=== PATIENT | female | born 1955 ===

== ENCOUNTER 2016-07-23 20:26 | Emergency (ER) | payer SELFPAY ==
[2016-07-23 21:41] VITALS: RESP 18
--- NOTE | 2016-07-23 21:47 | ED PDOC ---
Arrival/HPI - General Chief Complaint: Headache Time Seen by Provider: 07/23/16 20:31 Historian: Patient - History of Present Illness Narrative History of Present Illness (Text): 07/23/16 21:46 Kayla Velazquez is a 60 year old female, whose past medical history includes hypertension, who presents to the Emergency department complaining of headache. Patient states she has been experiencing a throbbing headache for the past 5 days with associated dizziness. Patient states she has experienced similar headaches in the past. Patient denies any vision changes, focal neurological deficits, speech changes, fever, chills, chest pain, shortness of breath, nausea , vomiting, diarrhea, urinary symptoms, back pain, neck pain, or any other complaints. Time/Duration: < week (5 days) Symptom Onset: Gradual Symptom Course: Unchanged Activities at Onset: Rest, Light Context: Home Past Medical History - Provider Review Nursing Documentation Reviewed: Yes - Psychiatric Hx Substance Use: No Family/Social History - Physician Review Nursing Documentation Reviewed: Yes Family/Social History: No Known Family HX Smoking Status: no Hx Alcohol Use: No Hx Substance Use: No Allergies/Home Meds Allergies/Adverse Reactions: Allergies No Known Allergies Allergy (Verified 07/23/16 21:36) Review of Systems - Physician Review All systems were reviewed & negative as marked: Yes - Review of Systems Constitutional: Normal. absent: Fevers Eyes: Normal ENT: Normal Respiratory: Normal. absent: SOB, Cough Cardiovascular: Normal. absent: Chest Pain Gastrointestinal: Normal. absent: Abdominal Pain, Diarrhea, Nausea, Vomiting Genitourinary Female: Normal. absent: Dysuria, Frequency, Hematuria, Urine Output Changes Musculoskeletal: Normal. absent: Back Pain, Neck Pain Skin: Normal. absent: Rash Neurological: Headache, Dizziness Endocrine: Normal Hemo/Lymphatic: Normal Psychiatric: Normal Physical Exam Vital Signs Reviewed: Yes Vital Signs Temp Pulse Resp BP Pulse Ox 07/23/16 21:37 97.7 F 93 H 18 162/90 H 97 Temperature: Afebrile Blood Pressure: Hypertensive Pulse: Regular Respiratory Rate: Normal Appearance: Positive for: Well-Appearing, Non-Toxic, Comfortable Pain Distress: None Mental Status: Positive for: Alert and Oriented X 3 - Systems Exam Head: Present: Atraumatic, Normocephalic Pupils: Present: PERRL Extroacular Muscles: Present: EOMI Conjunctiva: Present: Normal Mouth: Present: Moist Mucous Membranes Neck: Present: Normal Range of Motion. No: Meningeal Signs, MIDLINE TENDERNESS , Paraspinal Tenderness Respiratory/Chest: Present: Clear to Auscultation, Good Air Exchange. No: Respiratory Distress, Accessory Muscle Use Cardiovascular: Present: Regular Rate and Rhythm, Normal S1, S2. No: Murmurs Abdomen: Present: Normal Bowel Sounds. No: Tenderness, Distention, Peritoneal Signs Back: Present: Normal Inspection Upper Extremity: Present: Normal Inspection, Normal ROM, NORMAL PULSES, Neurovascularly Intact, Capillary Refill < 2s. No: Cyanosis, Edema, Tenderness , Swelling, Erythema, Temperature Abnormalties, Deformity Lower Extremity: Present: Normal Inspection. No: Edema Neurological: Present: GCS=15, CN II-XII Intact, Speech Normal Skin: Present: Warm, Dry, Normal Color. No: Rashes Psychiatric: Present: Alert, Oriented x 3, Normal Insight, Normal Concentration Medical Decision Making ED Course and Treatment: 07/23/16 21:46 Impression: 60 year old female complaining of headache and dizziness for 5 days. Plan: -- CT Head w/o contrast -- Reglan -- IV fluids -- Reassess and disposition Progress Notes: 07/23/16 23:53 Reviewed radiology, CT Head shows: Disease of the paranasal sinuses as above, noting in particular suggestion of possible acute sinusitis of the ethmoids. Favor that findings in the other paranasal sinuses represent more chronic abnormality rather than acute sinusitis. No intracranial hemorrhage. No fracture. No abnormality suspicious for acute stroke by noncontrast head CT. If there is clinical suspicion for stroke, please note that other modalities are considered to be more sensitive than axial noncontrast head CT. Incidental findings as above in the external auditory canals, these are statistically likely cerumen but could potentially contribute to patient discomfort. If there have been previous studies, comparison on site is recommended. 07/24/16 00:01 Pt now complaining of right sided flank/upper abdominal discomfort reproducible with movement.This appears to be muscular in origin.Will orders labs /further evaluation as needed. - Lab Interpretations Lab Results: 07/24/16 00:30 07/24/16 00:41 Lab Results 07/24/16 00:41: Sodium 136, Potassium 3.8, Chloride 97, Carbon Dioxide 29, Anion Gap 14, BUN 25 H, Creatinine 0.8, Est GFR ( Amer) > 60, Est GFR ( Non-Af Amer) > 60, Random Glucose 108, Calcium 9.3, Total Bilirubin 0.3, AST 38 , ALT 49, Alkaline Phosphatase 76, Total Protein 7.5, Albumin 3.9, Globulin 3.6 , Albumin/Globulin Ratio 1.1, Lipase 93, Urine Color Yellow, Urine Appearance Slight-cloudy, Urine pH 7.0, Ur Specific [place] 1.015, Urine Protein Negative, Urine Glucose (UA) Negative, Urine Ketones Negative, Urine Blood Trace-intact H , Urine Nitrate Negative, Urine Bilirubin Negative, Urine Urobilinogen 0.2, Ur Leukocyte Esterase Moderate H, Urine RBC 1 - 3, Urine WBC 5 - 10, Ur Epithelial Cells 0 - 2, Urine Bacteria Trace 07/24/16 00:30: WBC 7.1, RBC 4.37, Hgb 13.3, Hct 39.9, MCV 91.3, MCH 30.4, MCHC 33.3, RDW 14.4, Plt Count 265, MPV 10.2 I have reviewed the lab results: Yes - RAD Interpretation Narrative RAD Interpretations (Text): CT Head shows: Brain: No hemorrhage. No significant white matter disease. No edema. Ventricles: The No ventriculomegaly. Bones/joints: Unremarkable. No acute fracture. Soft tissues: Unremarkable. Lymph nodes: The small lymph nodes are seen in the right deep parotid region series 2 image 5 do not meet size criteria for pathologic enlargement. Sinuses: There is mucoperiosteal disease in the bilateral ethmoid sinuses, see for example series 3 image 10, an element of acute sinusitis particularly involving the posterior ethmoid air cells not excluded. The bilateral maxillary sinuses appear clear. There is moderate disease of the left greater than right frontal sinus is seen series 3 image 15. The sphenoid sinus does appear clear. Mastoid air cells: The mastoid air cells are clear. Auditory system: Soft tissue attenuation in the bilateral external auditory canals may represent cerumen, and physical examination correlation. Other findings: There are no previous studies for comparison. IMPRESSION: Disease of the paranasal sinuses as above, noting in particular suggestion of possible acute sinusitis of the ethmoids. Favor that findings in the other paranasal sinuses represent more chronic abnormality rather than acute sinusitis. No intracranial hemorrhage. No fracture. No abnormality suspicious for acute stroke by noncontrast head CT. If there is clinical suspicion for stroke, please note that other modalities are considered to be more sensitive than axial noncontrast head CT. Incidental findings as above in the external auditory canals, these are statistically likely cerumen but could potentially contribute to patient discomfort. If there have been previous studies, comparison on site is recommended. Radiology Orders: 07/23/16 22:08 HEAD W/O CONTRAST [CT] Stat Weld Engineer: Radiologist - Medication Orders Current Medication Orders: Discontinued Medications Amoxicillin/Clavulanate Potassium (Augmentin 875 Mg-125 Mg Tab) 1 tab PO ONCE STA PRN Reason: Protocol Stop: 07/24/16 01:54 Last Admin: 07/24/16 02:59 Dose: 1 TAB Sodium Chloride (Sodium Chloride 0.9%) 1,000 mls @ 999 mls/hr IV .Q1H1M STA Stop: 07/23/16 23:08 Last Admin: 07/23/16 22:33 Dose: 999 MLS/HR eMAR Start Stop Document 07/23/16 22:33 MAURA (Rec: 07/23/16 22:33 MAURA [id number]) Intravenous Solution Start Date 07/23/16 Start Time 22:33 End Date 07/23/16 End time 23:33 Total Infusion Time 60 Metoclopramide HCl (Reglan) 10 mg IVP ONCE ONE Stop: 07/23/16 22:09 Last Admin: 07/23/16 22:32 Dose: 10 MG IVP Administration Document 07/23/16 22:32 MAURA (Rec: 07/23/16 22:32 MAURA [id number]) Charges for Administration # of IVP Administrations 1 Oxycodone/Acetaminophen (Percocet 5/325 Mg Tab) 1 tab PO STAT STA Stop: 07/24/16 01:54 Last Admin: 07/24/16 02:59 Dose: 1 TAB - Scribe Statement The provider has reviewed the documentation as recorded by the José Jarvis Provider Attestation: All medical record entries made by the Scribcrow were at my direction and personally dictated by me. I have reviewed the chart and agree that the record accurately reflects my personal performance of the history, physical exam, medical decision making, and the department course for this patient. I have also personally directed, reviewed, and agree with the discharge instructions and disposition. Disposition/Present on Arrival - Present on Arrival Any Indicators Present on Arrival: No History of DVT/PE: No History of Uncontrolled Diabetes: No Urinary Catheter: No History of Decub. Ulcer: No History Surgical Site Infection Following: None - Disposition Have Diagnosis and Disposition been Completed?: Yes Diagnosis: Sinusitis, Headache, Muscle strain Disposition: HOME/ ROUTINE Disposition Time: 04:33 Patient Plan: Discharge Patient Problems: Current Active Problems Problem Status Diagnosed Headache Acute Muscle strain Acute Sinusitis Acute Condition: STABLE Discharge Instructions (ExitCare): Sinusitis (ED), Tension Headache (ED) Additional Instructions: Rest/no strenuous physical activity/take meds as prescribed/follow up with your doctor this week Prescriptions: Amoxicillin/Clavulanate [Augmentin 875 MG-125 MG] 1 tab PO BID #20 tab Acetaminophen/Butalbital/Caf [Fioricet] 1 tab PO Q6 PRN #16 tab PRN Reason: Headache Referrals: Jaqueline Simon APN-C [Primary Care Provider] - Follow up with primary
[2016-07-23] MEDS ORDERED: Sodium Chloride 0.9% 1,000 ML IV STA (22:08)
--- NOTE | 2016-07-23 23:45 | CT ---
EXAM: CT Head Without Intravenous Contrast. CLINICAL HISTORY: 60 years old, female; Pain; Headache; Headache not specified TECHNIQUE: Axial computed tomography images of the head/brain without intravenous contrast. This CT exam was performed using one or more of the following dose reduction techniques: automated exposure control, adjustment of the mA and/or kV according to patient size, and/or use of iterative reconstruction technique. EXAM DATE/TIME: Exam ordered 07/23/2016 10:08 PM COMPARISON: No relevant prior studies available. FINDINGS: Brain: No hemorrhage. No significant white matter disease. No edema. Ventricles: The No ventriculomegaly. Bones/joints: Unremarkable. No acute fracture. Soft tissues: Unremarkable. Lymph nodes: The small lymph nodes are seen in the right deep parotid region series 2 image 5 do not meet size criteria for pathologic enlargement. Sinuses: There is mucoperiosteal disease in the bilateral ethmoid sinuses, see for example series 3 image 10, an element of acute sinusitis particularly involving the posterior ethmoid air cells not excluded. The bilateral maxillary sinuses appear clear. There is moderate disease of the left greater than right frontal sinus is seen series 3 image 15. The sphenoid sinus does appear clear. Mastoid air cells: The mastoid air cells are clear. Auditory system: Soft tissue attenuation in the bilateral external auditory canals may represent cerumen, and physical examination correlation. Other findings: There are no previous studies for comparison. IMPRESSION: Disease of the paranasal sinuses as above, noting in particular suggestion of possible acute sinusitis of the ethmoids. Favor that findings in the other paranasal sinuses represent more chronic abnormality rather than acute sinusitis. No intracranial hemorrhage. No fracture. No abnormality suspicious for acute stroke by noncontrast head CT. If there is clinical suspicion for stroke, please note that other modalities are considered to be more sensitive than axial noncontrast head CT. Incidental findings as above in the external auditory canals, these are statistically likely cerumen but could potentially contribute to patient discomfort. If there have been previous studies, comparison on site is recommended.
[2016-07-24 01:12] LABS: URINE BILIRUBIN NEGATIVE (NEGATIVE); URINE BLOOD TRACE-INTACT (NEGATIVE); URINE GLUCOSE (UA) NEGATIVE (NEGATIVE); URINE KETONE NEGATIVE (NEGATIVE); URINE LEUKOCYTE ESTERASE MODERATE Leu/uL (NEGATIVE); URINE PROTEIN NEGATIVE mg/dL (<30 mg/dL); URINE UROBILINOGEN 0.2 E.U./dL (<1 E.U./dL)
[2016-07-24 01:14] LABS: ALB/GLOB RATIO 1.1 (1.1-1.8); ALKALINE PHOSPHATASE 76 U/L (38-133); ALT/SGPT 49 U/L (7-56); AST/SGOT 38 U/L (15-39); BILIRUBIN,TOTAL 0.3 mg/dL (0.2-1.3); BLOOD UREA NITROGEN 25 mg/dL (7-21); CALCIUM 9.3 mg/dL (8.4-10.5); CARBON DIOXIDE 29 mmol/L (21-33); CHLORIDE 97 mmol/L (95-110); GFR AFRICAN-AMERICAN > 60; GLUCOSE,RANDOM 108 mg/dL (70-110); LIPASE 93 U/L (23-300); POTASSIUM 3.8 mmol/L (3.6-5.0); SODIUM 136 mmol/L (132-148); TOTAL PROTEIN 7.5 g/dL (5.8-8.3)
[2016-07-24 01:18] LABS: HEMATOCRIT 39.9 % (36.0-48.0); MEAN CELL VOLUME 91.3 fL (80.0-105.0); MEAN CORPUSCULAR HEMOGLOBIN 30.4 pg (25.0-35.0); MEAN CORPUSCULAR HGB CONC 33.3 g/dl (31.0-37.0); MEAN PLATELET VOLUME 10.2 fl (7.0-11.0); RED CELL DISTRIBUTION WIDTH 14.4 % (11.5-14.5); WHITE BLOOD COUNT 7.1 10^3/ul (4.5-11.0)
[2016-07-24 01:28] LABS: URINE APPEARANCE SLIGHT-CLOUDY (CLEAR); URINE COLOR YELLOW (YELLOW)
[2016-07-24 01:30] LABS: URINE BACTERIA TRACE (NEG); URINE EPITHELIAL CELLS 0 - 2 /hpf (0-5)
[2016-07-24] MEDS ORDERED: Oxycodone/Acetaminophen 5/325 mg Tab PO STA (01:53)
[2016-07-24] MEDS ORDERED: Amoxicillin-Clav 875-125 mg Tab PO STA (01:53)
[2016-07-24 06:33] VITALS: BP 138/71; PULSE 71; TEMP 98.2; O2SAT 99
== END 2016-07-24 08:23 | disposition home or self-care (01) ==
LOC: ED 20:26
DX: J32.9 Chronic sinusitis, unspecified (principal); R51 Headache; T14.8 Other injury of unspecified body region; X58.XXXA Exposure to other specified factors, initial encounter; Y92.009 Unspecified place in unspecified non-institutional (private) residence as the place of occurrence of the external cause
CPT/HCPCS: 70450; 80053; 81001; 83690; 85027; 87086; 96361; 96374; 99284; J2765; J7040

== ENCOUNTER 2016-09-04 11:35 | Emergency (ER) | payer MEDICAID ==
[2016-09-04 11:42] VITALS: RESP 18; TEMP 98.2; BMI 36.3
[2016-09-04] MEDS ORDERED: Sodium Chloride 0.9% 500 ML IV STA (11:57)
[2016-09-04] MEDS ORDERED: DiphenhydrAMINE 50 mg/ml Inj IVP STA (11:57)
--- NOTE | 2016-09-04 12:24 | ED PDOC ---
Arrival/HPI - General Chief Complaint: High Blood Pressure Time Seen by Provider: 09/04/16 11:54 Historian: Patient, Maternal Fetal Physician (amish Land's RN) - History of Present Illness Narrative History of Present Illness (Text): 09/04/16 12:01 60 year old female whose past medical history includes hypertension and migraines presents to the emergency department with diffuse headache since 06: 30 today and elevated blood pressure. Patient reports this is not the worst headache of her life and feels similar to her previous headaches. Patient reports compliance with blood pressure medication. Denies nausea, vomiting, or photophobia. Time/Duration: 24 hours Symptom Onset: Gradual Symptom Course: Unchanged Modifying Factors (Text): None Associated Symptoms (Text): None Past Medical History - Provider Review Nursing Documentation Reviewed: Yes - Reproductive Menopause: Yes - Cardiac Hx Cardiac Disorders: Yes Hx Hypertension: Yes - Pulmonary Hx Respiratory Disorders: Yes Hx Asthma: Yes - Neurological Hx Neurological Disorder: Yes Hx Migraine: Yes - HEENT Hx HEENT Disorder: Yes Other/Comment: Wears Glasses - Renal Hx Renal Disorder: No - Endocrine/Metabolic Hx Endocrine Disorders: Yes Hx Hyperthyroidism: Yes - Hematological/Oncological Hx Blood Disorders: No - Integumentary Hx Dermatological Disorder: No - Musculoskeletal/Rheumatological Hx Musculoskeletal Disorders: No - Gastrointestinal Hx Gastrointestinal Disorders: No - Genitourinary/Gynecological Hx Genitourinary Disorders: No - Psychiatric Hx Psychophysiologic Disorder: No Hx Substance Use: No - Surgical History Hx Tubal Ligation: Yes Family/Social History - Physician Review Nursing Documentation Reviewed: Yes Family/Social History: Unknown Family HX Smoking Status: Never Smoked Hx Alcohol Use: No Hx Substance Use: No Allergies/Home Meds Allergies/Adverse Reactions: Allergies ampicillin Allergy (Verified 09/04/16 13:48) SHORTNESS OF BREATH aspirin Allergy (Verified 09/04/16 12:04) SHORTNESS OF BREATH ketorolac [From Toradol] Allergy (Verified 09/04/16 12:04) RASH penicillin G Allergy (Verified 09/04/16 12:04) SHORTNESS OF BREATH Home Medications: Home Meds Medication Instructions Recorded Confirmed Fluticasone/Salmeterol [Advair 500 mcg PO DAILY 09/04/16 09/04/16 250-50 Diskus] Levothyroxine [Synthroid] 25 mcg PO DAILY 09/04/16 09/04/16 Losartan/Hydrochlorothiazide 100 mg PO DAILY 09/04/16 09/04/16 [Hyzaar 100-25 Tablet] Montelukast [Singulair] 10 mg PO DAILY 09/04/16 09/04/16 Pantoprazole [Protonix EC Tab] 40 mg PO DAILY 09/04/16 09/04/16 Review of Systems - Physician Review All systems were reviewed & negative as marked: Yes Physical Exam - Physical Exam Narrative Physical Exam (Text): - Review of Systems Constitutional: Normal. absent: Fatigue, Weight Change, Fevers Eyes: Normal ENT: Normal Respiratory: Normal absent: SOB, Cough, Sputum Cardiovascular: Normal absent: Chest pain, Palpitations, Syncope Gastrointestinal: Normal absent: Abdominal pain, Diarrhea, Nausea, Vomiting Genitourinary: Normal. absent: Dysuria, Frequency, Hematuria Musculoskeletal: Normal. absent: Arthralgias, Back Pain, Neck Pain Skin: Normal Neurological: Headache absent: Focal Weakness Endocrine: Normal Hemo/Lymphatic: Normal Psychiatric: Normal - Physical exam Patient appears age appropriate, speaking full sentences without difficulty - Systems Exam Head: Present: Atraumatic, Normocephalic Pupils: Present: PERRL Extraocular Muscles: Present: EOMI Conjunctiva: Present: Normal Mouth: Present: Moist Mucous Membranes Neck: Present: Normal Range of Motion. No: MIDLINE TENDERNESS, Paraspinal Tenderness Respiratory/Chest: Present: Clear to Auscultation, Good Air Exchange. No: Respiratory Distress, Accessory Muscle Use, Tachypnic Cardiovascular: Present: Regular Rate and Rhythm, Normal S1, S2, Peripheral Pulses Present. No: Murmurs Abdomen: Present: Normal Bowel Sounds, No: Tenderness, Peritoneal Signs, Rebound, Guarding, Distention Back: Present: Normal Inspection. No: Midline Tenderness, Paraspinal Tenderness Upper Extremity: Present: Normal Inspection. No: Cyanosis, Edema Lower Extremity: Present: Normal Inspection. No: Edema Neurological: Present: GCS=15, Speech Normal, cranial nerves II through XII fully intact with no cerebellar abnormality, neuro-sensory fully intact. No focal neurological deficits. Skin: Present: Warm, Dry, Normal Color. No: Rashes Lymphatic: Present: OX3, NI, NC Psychiatric: Present: Alert, Oriented x 3, Normal Insight, Normal Concentration Vital Signs Reviewed: Yes Vital Signs Temp Pulse Resp BP Pulse Ox 09/04/16 13:28 60 18 187/97 H 98 09/04/16 13:07 58 L 18 188/100 H 98 09/04/16 11:41 98.2 F 68 18 184/100 H 97 Temperature: Afebrile Blood Pressure: Hypertensive Pulse: Regular Respiratory Rate: Normal Appearance: Positive for: Well-Appearing, Non-Toxic, Comfortable Pain Distress: None Mental Status: Positive for: Alert and Oriented X 3 Medical Decision Making ED Course and Treatment: Impression: 60 year old female whose past medical history includes hypertension and migraines presents to the emergency department with diffuse headache since 06:30 today and elevated blood pressure. On physical exam, patient has no acute findings. Plan: -- CT Head -- Tylenol, Benadryl, Toradol, Reglan -- IV fluids -- Labs -- Reassess and disposition Prior Visits: Notes and results from previous visits were reviewed. Patient last seen in the ED on 07/23/16 with similar symptoms and was discharged home with Augmentin and Fioricet. Progress Notes: 09/04/16 14:22 on reeval, pt's BP decreased without meds no focal neurological deficits on reeval CT head pending 09/04/16 15:07 pt ambulating without difficulty, steady gait. denies COMER. states she feels much better. asked to be dc'd home pt states she would like an Rx for the previous meds she had last time in the ER will provide fioricet rx. Pt states she understands to return to the ER right away for new or worsening symptoms or for inability to f/u with PMD or specialist as instructed. Patient states that she fully agrees with and understands discharge instructions. States that she agrees with the plan and disposition. Verbalized and repeated discharge instructions and plan. I have given the patient opportunity to ask any additional questions. PROCEDURE: CT HEAD WITHOUT CONTRAST. Vamp Cut Out Worker : Deniz Andersen MD IMPRESSION: Sinusitis. No acute intracranial findings - Lab Interpretations Lab Results: 09/04/16 12:56 09/04/16 12:56 Lab Results 09/04/16 12:56: Sodium 139, Potassium 3.4 L, Chloride 99, Carbon Dioxide 31, Anion Gap 12, BUN 17, Creatinine 0.8, Est GFR ( Amer) > 60, Est GFR (Non- Af Amer) > 60, Random Glucose 93, Calcium 9.5, Total Bilirubin 0.5, AST 32, ALT 48, Alkaline Phosphatase 75, Total Protein 8.0, Albumin 4.1, Globulin 4.0, Albumin/Globulin Ratio 1.0 L 09/04/16 12:56: PT 10.8, INR 1.00, APTT 28.0 09/04/16 12:56: WBC 5.9, RBC 4.43, Hgb 13.3, Hct 40.3, MCV 91.0, MCH 30.0, MCHC 33.0, RDW 14.1, Plt Count 250, MPV 10.1, Gran % 45.1 L, Lymph % (Auto) 37.4 H, [place] % (Auto) 6.8 H, Eos % (Auto) 10.2 H, Baso % (Auto) 0.5, Gran # 2.64, Lymph # 2.2, [place] # 0.4, Eos # 0.6, Baso # 0.03 - RAD Interpretation Radiology Orders: 09/04/16 11:57 HEAD W/O CONTRAST [CT] Stat - Medication Orders Current Medication Orders: Discontinued Medications Acetaminophen (Tylenol 325mg Tab) 975 mg PO STAT STA Stop: 09/04/16 11:58 Last Admin: 09/04/16 13:03 Dose: 975 mg Diphenhydramine HCl (Benadryl) 25 mg IVP STAT STA Stop: 09/04/16 11:58 Last Admin: 09/04/16 13:03 Dose: 25 mg Sodium Chloride (Sodium Chloride 0.9%) 500 mls @ 1,000 mls/hr IV .Q30M STA Stop: 09/04/16 12:26 Last Admin: 09/04/16 13:03 Dose: 1,000 mls/hr Ketorolac Tromethamine (Toradol) 15 mg IVP STAT STA Stop: 09/04/16 11:58 Last Admin: 09/04/16 12:04 Dose: Not Given Non-Admin Reason: Patient Refused Metoclopramide HCl (Reglan) 10 mg IVP STAT STA Stop: 09/04/16 11:58 Last Admin: 09/04/16 13:03 Dose: 10 mg - Scribe Statement The provider has reviewed the documentation as recorded by the José Hernandez Provider Scribe Attestation: All medical record entries made by the Scribe were at my direction and personally dictated by me. I have reviewed the chart and agree that the record accurately reflects my personal performance of the history, physical exam, medical decision making, and the department course for this patient. I have also personally directed, reviewed, and agree with the discharge instructions and disposition. Disposition/Present on Arrival - Present on Arrival Any Indicators Present on Arrival: No History of DVT/PE: No History of Uncontrolled Diabetes: No Urinary Catheter: No History of Decub. Ulcer: No History Surgical Site Infection Following: None - Disposition Have Diagnosis and Disposition been Completed?: Yes Diagnosis: Headache, Hypertension Disposition: HOME/ ROUTINE Disposition Time: 15:12 Patient Plan: Discharge Patient Problems: Current Active Problems Problem Status Onset Headache Acute Hypertension Acute Condition: GOOD Discharge Instructions (ExitCare): Hypertension (ED), General Headache (ED) Print Language: [place] Additional Instructions: PLEASE RETURN TO THE EMERGENCY DEPARTMENT FOR NEW OR WORSENING SYMPTOMS. RETURN RIGHT AWAY IF YOU CANNOT FOLLOW UP WITH YOUR PRIMARY CARE DOCTOR, CLINIC, OR SPECIALIST IN 1-2 DAYS. Prescriptions: Acetaminophen/Butalbital/Caf [Fioricet] 1 tab PO DAILY PRN #12 tab PRN Reason: Pain, Severe (8-10) Referrals: Haydee French MD [Primary Care Provider] - Follow up with primary Forms: Air Visits Discharge (Filipino)
[2016-09-04 13:05] LABS: ADD MANUAL DIFF? NO
[2016-09-04 13:08] VITALS: O2SAT 98
[2016-09-04 13:13] LABS: BASO # 0.03 K/mm3 (0.0-2.0); BASO % 0.5 % (0.0-3.0); EOS # 0.6 (0.0-0.7); EOS % 10.2 % (1.5-5.0); GRAN # 2.64 (1.4-6.5); GRAN % 45.1 % (50.0-68.0); HEMATOCRIT 40.3 % (36.0-48.0); LYMPH # 2.2 (1.2-3.4); LYMPH % 37.4 % (22.0-35.0); MEAN PLATELET VOLUME 10.1 fl (7.0-11.0); MONO # 0.4 (0.1-0.6); MONO % 6.8 % (1.0-6.0); PLATELET COUNT 250 10^3/uL (120.0-450.0); RED CELL DISTRIBUTION WIDTH 14.1 % (11.5-14.5); WHITE BLOOD COUNT 5.9 10^3/ul (4.5-11.0)
[2016-09-04 13:27] LABS: ALKALINE PHOSPHATASE 75 U/L (38-133); ALT/SGPT 48 U/L (7-56); AST/SGOT 32 U/L (15-39); BILIRUBIN,TOTAL 0.5 mg/dL (0.2-1.3); BLOOD UREA NITROGEN 17 mg/dL (7-21); CALCIUM 9.5 mg/dL (8.4-10.5); CARBON DIOXIDE 31 mmol/L (21-33); CHLORIDE 99 mmol/L (98-107); GFR AFRICAN-AMERICAN > 60; GLUCOSE,RANDOM 93 mg/dL (70-110); POTASSIUM 3.4 mmol/L (3.6-5.0); SODIUM 139 mmol/L (132-148)
--- NOTE | 2016-09-04 15:31 | CT ---
PROCEDURE: CT HEAD WITHOUT CONTRAST. HISTORY: COMER COMPARISON: 07/23/2016 TECHNIQUE: Axial computed tomography images were obtained through the head/brain without intravenous contrast. Radiation dose: Total exam DLP = 688 mGy-cm. This CT exam was performed using one or more of the following dose reduction techniques: Automated exposure control, adjustment of the mA and/or kV according to patient size, and/or use of iterative reconstruction technique. FINDINGS: HEMORRHAGE: No intracranial hemorrhage. BRAIN: No mass effect or edema. No atrophy or chronic microvascular ischemic changes. VENTRICLES: Unremarkable. No hydrocephalus. CALVARIUM: Unremarkable. PARANASAL SINUSES: There is opacification of the ethmoid air cells. Mucosal thickening in the sphenoid and maxillary sinuses MASTOID AIR CELLS: Unremarkable as visualized. No inflammatory changes. OTHER FINDINGS: None. IMPRESSION: Sinusitis. No acute intracranial findings
[2016-09-04 15:52] VITALS: BP 173/86; PULSE 61
== END 2016-09-04 16:01 | disposition home or self-care (01) ==
LOC: ED 11:35
DX: I10 Essential (primary) hypertension (principal); R51 Headache
CPT/HCPCS: 70450; 80053; 85025; 85610; 85730; 96374; 96375; 99283; J1200; J2765; J7040